=== PATIENT | female | born 1990 | race African-American/Black ===

== ENCOUNTER → 2022-06-27 | Outpatient (CLI) | payer OTHER | LOC: M RAD 12:07 | PROVIDERS: ATTEND Advanced Practice Midwife | DX: O24.419 Gestational diabetes mellitus in pregnancy, unspecified control (principal); Z3A.34 34 weeks gestation of pregnancy ==

== ENCOUNTER → 2022-07-11 | Outpatient (CLI) | payer OTHER | LOC: M RAD 08:22 → EDUNIT# 09:00 | PROVIDERS: ATTEND Advanced Practice Midwife | DX: Z34.03 Encounter for supervision of normal first pregnancy, third trimester (principal); Z3A.36 36 weeks gestation of pregnancy ==

== ENCOUNTER 2022-07-22 08:15 | Outpatient (CLI) | payer OTHER ==
[~2022-07-22] VITALS: Ht 157.5 cm; Wt 88.4 kg
[2022-07-22] MEDS ORDERED: PNV1TABL16 PO (08:28)
[2022-07-22] MEDS ORDERED: HOME MED LIST COMPLETE! XX SCH (08:30)
[2022-07-22 08:36] VITALS: BP 106/73
[2022-07-22 09:50] VITALS: BP 114/72
[2022-07-22 10:37] VITALS: BP 108/65
== END 2022-07-22 11:13 | disposition home or self-care (01) ==
LOC: M LDO 08:15
PROVIDERS: ATTEND Registered Nurse
DX: O9A.213 Injury, poisoning and certain other consequences of external causes complicating pregnancy, third trimester (principal); S70.02XA Contusion of left hip, initial encounter; Z3A.38 38 weeks gestation of pregnancy; W00.0XXA Fall on same level due to ice and snow, initial encounter; Y92.9 Unspecified place or not applicable
CPT/HCPCS: 59025; G0463

== ENCOUNTER 2022-08-04 11:18 | Outpatient (CLI) | payer OTHER ==
[~2022-08-04] VITALS: Ht 160 cm; Wt 89.3 kg
[~2022-08-04 11:18] MED LIST: PNV1TABL16 PO
[2022-08-04 11:35] VITALS: BP 110/60
[2022-08-04] MEDS ORDERED: NOXI1TAB PO (11:41)
[2022-08-04] MEDS ORDERED: PRENTAB9 PO (11:41)
[2022-08-04] MEDS ORDERED: HOME MED LIST COMPLETE! XX SCH (11:45)
== END 2022-08-04 12:21 | disposition home or self-care (01) ==
LOC: M LDO 11:18
PROVIDERS: ATTEND Obstetrics & Gynecology
DX: O36.8130 Decreased fetal movements, third trimester, not applicable or unspecified (principal); Z3A.40 40 weeks gestation of pregnancy; O48.0 Post-term pregnancy; O24.410 Gestational diabetes mellitus in pregnancy, diet controlled
CPT/HCPCS: 59025; G0463

== ENCOUNTER 2022-08-09 08:05 | Inpatient (IN) | payer OTHER ==
[2022-08-09] VITALS (9 sets, daily range): BP systolic 108–129; BP diastolic 56–96
[~2022-08-09] VITALS: Ht 160 cm; Wt 89.5 kg
[~2022-08-09 08:05] MED LIST changes: +NOXI1TAB PO; +PRENTAB9 PO
[2022-08-09] MEDS ORDERED: TRANEXAMIC ACID INJection 1,000 MG in NS 100 ML IV PRN ×2 (08:30→15:35)
[2022-08-09] MEDS ORDERED: LIDOCAINE 1% MDV 20ML VIAL INFIL PRN (08:30)
[2022-08-09] MEDS ORDERED: METHYLERGONOVINE MALEATE 0.2MG/ML 1ML VIAL IM PRN ×2 (08:30→15:35)
[2022-08-09] MEDS ORDERED: OXYTOCIN INJ 10UNITS/ML 1ML VIAL IM PRN (08:30)
[2022-08-09] MEDS ORDERED: CARBOPROST TROMETHAMINE 250 MCG/ML AMP IM PRN ×2 (08:30→15:35)
[2022-08-09] MEDS ORDERED: OXYTOCIN DRIP 30 UNITS in IV 1 EA IV PRN ×4 (08:30)
[2022-08-09] MEDS ORDERED: miSOPROStol 25MCG 1/4 TABLET PV ONE (08:30)
[2022-08-09] MEDS ORDERED: miSOPROStol 50MCG 1/2 TABLET PO PRN (08:30)
[2022-08-09] MEDS ORDERED: HOME MED LIST COMPLETE! XX SCH (08:50)
[2022-08-09] MEDS ORDERED: BUTORPHANOL 2 MG/ML 1ML VIAL IV PRN (10:40)
[2022-08-09] MEDS ORDERED: PROMETHAZINE 25MG/ML 1ML VIAL IV PRN (10:40)
[2022-08-09 10:46] LABS: HEMATOCRIT 36.5 % (36.0-47.0); HEMOGLOBIN 12.5 g/dl (12.0-15.5); MEAN CORPUSCULAR HEMOGLOBIN 29.5 pg (27.0-33.0); MEAN CORPUSCULAR HGB CONC 34.2 g/dl (32.0-36.5); MEAN CORPUSCULAR VOLUME 86.1 fl (80.0-96.0); PLATELET COUNT, AUTOMATED 262 10^3/uL (150-450); RED BLOOD COUNT 4.24 10^6/uL (4.00-5.40); WHITE BLOOD COUNT 7.6 10^3/uL (4.0-10.0)
[2022-08-09] MEDS ORDERED: CALCIUM CARBONATE 500 MG CHEW U/D PO PRN (12:05)
[2022-08-09] MEDS: FAMOTIDINE 20 MG TAB PO SCH ×2 (15:22→21:21)
[2022-08-09] MEDS ORDERED: BUPIVACAINE HCL 0.25% 10ML VIAL SC ONE (15:35)
[2022-08-09] MEDS ORDERED: BICITRA 30ML SOLN UDC PO ONE (15:35)
[2022-08-09] MEDS ORDERED: ceFAZolin SOD 2 GM in IV 1 EA IV ONE (15:35)
[2022-08-09] MEDS ORDERED: OXYTOCIN 30UNITS IN 0.9% NaCl 500ML IV BAG As Ordered ONE ×2 (15:43→17:52)
[2022-08-09] MEDS ORDERED: MORPHINE PRES-FREE INJ 10 MG/10 ML VIAL As Ordered ONE (15:43)
[2022-08-09] MEDS: LR 1,000 ML IV SCH ×2 (15:53→22:38)
[2022-08-09] MEDS ORDERED: PHENYLephrine 500MCG 5ML (100MCG/ML) SYRINGE As Ordered ONE (16:28)
[2022-08-09] MEDS ORDERED: ePHEDrine SULFATE 25 MG/5 ML(5MG/ML) SYRINGE As Ordered ONE (16:28)
[2022-08-09] MEDS ORDERED: ONDANSETRON 4MG 2ML VIAL As Ordered ONE (16:29)
[2022-08-09] MEDS ORDERED: KETOROLAC 60MG 2ML VIAL As Ordered ONE (16:42)
[2022-08-09] MEDS ORDERED: OXYTOCIN INJ 10UNITS/ML 1ML VIAL As Ordered ONE (16:43)
[2022-08-09 17:04] LABS: CORD GAS ABE V -3.4; CORD GAS HCO3 V 21.8 MEQ/L; CORD GAS O2 SAT V 84.6 %; CORD GAS PCO2 V 40.1 mmHg; CORD GAS PH V 7.354 UNITS; CORD GAS PO2 V 41.9 mmHg; CORD GAS SBC V 21.4 MEQ/L; CORD GAS TCO2 V 23.1 MEQ/L
[2022-08-09 17:05] LABS: CORD GAS ABE A -5.2; CORD GAS HCO3 A 24.4 MEQ/L; CORD GAS PCO2 A 66.9 mmHg; CORD GAS PH A 7.179 UNITS; CORD GAS TCO2 A 26.4 MEQ/L
[2022-08-09 17:09] LABS: CORD GAS PO2 A < 10.0 mmHg
[2022-08-09] MEDS ORDERED: RHOGAM 300MCG (1500IU) INJ IM SCH (18:05)
[2022-08-09] MEDS ORDERED: MORPHINE 2 MG/ML 1ML VIAL IV PRN (18:05)
[2022-08-09] MEDS ORDERED: ACETAMINOPHEN TAB 650MG DOSE (2X325MG) PO PRN (18:05)
[2022-08-09] MEDS ORDERED: METOCLOPRAMIDE INJ 10MG/2ML VIAL IV PRN (18:05)
[2022-08-09] MEDS ORDERED: OXYTOCIN DRIP 30 UNITS in IV 1 EA IV SCH (18:05)
[2022-08-09] MEDS ORDERED: PROMETHAZINE 25 MG TAB PO PRN (18:05)
[2022-08-09] MEDS ORDERED: oxyCODONE 5MG TAB As Ordered ONE (18:58)
[2022-08-09] MEDS: oxyCODONE 5MG TAB PO PRN (18:59)
[2022-08-09] MEDS: DOCUSATE SODIUM 100MG CAPSULE PO SCH (21:21)
[2022-08-09] MEDS: KETOROLAC 30 MG/ML 1ML VIAL IV SCH (23:01)
[2022-08-10] MEDS ORDERED: UNRESOLVED CLARIFICATION ENTRY XX SCH (00:01)
[2022-08-10 02:00] VITALS: BP 103/59
[2022-08-10] MEDS: KETOROLAC 30 MG/ML 1ML VIAL IV SCH ×2 (05:21→11:00)
[2022-08-10 06:00] VITALS: BP 100/54
[2022-08-10] MEDS: LR 1,000 ML IV SCH ×2 (06:13→10:30)
[2022-08-10] MEDS: ENOXAPARIN 40MG/0.4ML SYRINGE (J1650 PER 10MG) SC SCH (06:14)
[2022-08-10 06:27] LABS: HEMATOCRIT 31.9 % (36.0-47.0); HEMOGLOBIN 10.7 g/dl (12.0-15.5); MEAN CORPUSCULAR HEMOGLOBIN 29.5 pg (27.0-33.0); MEAN CORPUSCULAR HGB CONC 33.5 g/dl (32.0-36.5); MEAN CORPUSCULAR VOLUME 87.9 fl (80.0-96.0); PLATELET COUNT, AUTOMATED 236 10^3/uL (150-450); RED BLOOD COUNT 3.63 10^6/uL (4.00-5.40); WHITE BLOOD COUNT 12.8 10^3/uL (4.0-10.0)
[2022-08-10] MEDS: PRENATAL VITAMINS CHEWABLE TABLET PO SCH (09:00)
[2022-08-10] MEDS: DOCUSATE SODIUM 100MG CAPSULE PO SCH ×2 (09:00→21:13)
[2022-08-10] MEDS: FAMOTIDINE 20 MG TAB PO SCH ×2 (09:00→21:13)
[2022-08-10 10:00] VITALS: BP 95/52
[2022-08-10 14:00] VITALS: BP 101/59
[2022-08-10] MEDS: oxyCODONE 5MG TAB PO PRN (16:41)
[2022-08-10 18:00] VITALS: BP 104/62
[2022-08-10] MEDS: IBUPROFEN 800 MG TAB PO SCH (19:43)
[2022-08-10 22:00] VITALS: BP 108/63
[2022-08-11 01:45] VITALS: BP 102/58
[2022-08-11] MEDS: IBUPROFEN 800 MG TAB PO SCH ×3 (03:59→18:15)
[2022-08-11] MEDS: oxyCODONE 5MG TAB PO PRN ×3 (04:58→18:14)
[2022-08-11 06:00] VITALS: BP 101/65
[2022-08-11] MEDS: ENOXAPARIN 40MG/0.4ML SYRINGE (J1650 PER 10MG) SC SCH (06:52)
[2022-08-11] MEDS ORDERED: MEASLES,MUMPS,RUBELLA VACCINE INJ (MMR-II) SC.IMMUN ONE (09:00)
[2022-08-11] MEDS ORDERED: ACET1TAB55 PO (09:30)
[2022-08-11] MEDS ORDERED: IBUP80TA PO (09:30)
[2022-08-11] MEDS ORDERED: COLA100C5 PO (09:30)
[2022-08-11] MEDS ORDERED: OXYC-517 PO (09:30)
[2022-08-11 10:00] VITALS: BP 112/67
[2022-08-11] MEDS: DOCUSATE SODIUM 100MG CAPSULE PO SCH ×2 (10:00→21:15)
[2022-08-11] MEDS: FAMOTIDINE 20 MG TAB PO SCH ×2 (10:00→21:15)
[2022-08-11] MEDS: PRENATAL VITAMINS CHEWABLE TABLET PO SCH (10:00)
[2022-08-11] MEDS: SIMETHICONE 80MG CHEW TAB PO PRN ×2 (10:00→18:13)
[2022-08-11] MEDS: ACETAMINOPHEN 500 MG TAB PO PRN ×2 (10:01→21:23)
[2022-08-11 14:00] VITALS: BP 109/65
[2022-08-11 18:00] VITALS: BP 112/75
[2022-08-12] MEDS: oxyCODONE 5MG TAB PO PRN ×2 (01:14→08:27)
[2022-08-12] MEDS: IBUPROFEN 800 MG TAB PO SCH ×2 (03:44→10:58)
[2022-08-12 06:00] VITALS: BP 100/55
[2022-08-12] MEDS: ENOXAPARIN 40MG/0.4ML SYRINGE (J1650 PER 10MG) SC SCH (06:43)
[2022-08-12] MEDS: PRENATAL VITAMINS CHEWABLE TABLET PO SCH (08:26)
[2022-08-12] MEDS: DOCUSATE SODIUM 100MG CAPSULE PO SCH (08:27)
[2022-08-12] MEDS: FAMOTIDINE 20 MG TAB PO SCH (08:36)
[2022-08-12] MEDS: SIMETHICONE 80MG CHEW TAB PO PRN (09:47)
== END 2022-08-12 14:45 | disposition home or self-care (01) | DRG 773 ==
LOC: M LDI 08:05 → M OBS 19:15
PROVIDERS: ADMIT Obstetrics & Gynecology; ATTEND Obstetrics & Gynecology
PROC: 3E0P7GC Introduction of Other Therapeutic Substance into Female Reproductive, Via Natural or Artificial Opening (ICD-10-PCS; 2022-08-09)
PROC: 10D00Z1 Extraction of Products of Conception, Low, Open Approach (ICD-10-PCS; principal; 2022-08-09 15:50)
DX: O24.420 Gestational diabetes mellitus in childbirth, diet controlled (principal); Z37.0 Single live birth; O48.0 Post-term pregnancy; Z3A.41 41 weeks gestation of pregnancy; O76 Abnormality in fetal heart rate and rhythm complicating labor and delivery; O77.0 Labor and delivery complicated by meconium in amniotic fluid; O69.89X0 Labor and delivery complicated by other cord complications, not applicable or unspecified